=== PATIENT | female | born 1960 | race Caucasian/White ===

== ENCOUNTER 2019-05-30 09:54 | Emergency (ER) | payer OTHER ==
[~2019-05-30] VITALS: Ht 152.4 cm; Wt 69.9 kg
[~2019-05-30 09:54] MED LIST: AMB5 PO
[2019-05-30 10:03] VITALS: BP 124/67
[2019-05-30 11:03] LABS: UA SPECIFIC GRAVITY >=1.030 (1.005-1.035); microscopic required? YES; urine erythrocyte TRACE (NEGATIVE)
== END 2019-05-30 11:00 | disposition home or self-care (01) ==
LOC: ED 09:54
PROVIDERS: Emergency Medicine
DX: N39.0 Urinary tract infection, site not specified (principal); Z98.890 Other specified postprocedural states; Z88.0 Allergy status to penicillin; Z88.2 Allergy status to sulfonamides

== ENCOUNTER 2019-10-28 18:08 | Emergency (ER) | payer OTHER ==
[~2019-10-28] VITALS: Ht 152.4 cm; Wt 71.7 kg
[2019-10-28 18:23] VITALS: Ht 152.4 cm; Wt 71.7 kg
[2019-10-28 20:01] VITALS: BP 112/56
== END 2019-10-28 20:01 | disposition short-term general hospital (02) ==
LOC: ED 18:08
DX: F45.8 Other somatoform disorders (principal); Z88.0 Allergy status to penicillin; Z88.2 Allergy status to sulfonamides; Z98.890 Other specified postprocedural states